=== PATIENT | male | born 1990 | race Two or more races ===

== ENCOUNTER 2020-01-10 03:48 | Emergency (ER) | payer OTHER ==
[~2020-01-10] VITALS: Ht 167.6 cm; Wt 70.3 kg
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
[2020-01-10] MEDS ORDERED: HYDROCODONE/APAP 5/325MG TABLET ONE (04:22)
[2020-01-10] MEDS ORDERED: HYDROCODONE/APAP 5/325MG TABLET PO ONE (04:30)
[2020-01-10 04:40] VITALS: BP 131/85
--- NOTE | 2020-01-10 04:40 | NUR ---
Patient discharged to home in stable condition. Written and verbal after care instructions given. Patient verbalizes understanding of instruction. Pt left in custody.
== END 2020-01-10 04:41 ==
LOC: ER 04:03
DX: S60.221A Contusion of right hand, initial encounter (principal); W22.8XXA Striking against or struck by other objects, initial encounter; Y93.89 Activity, other specified; Y92.89 Other specified places as the place of occurrence of the external cause; Y99.8 Other external cause status
CPT/HCPCS: 73130-TC